=== PATIENT | male | born 1980 | race American Indian/Alaskan Native ===

== ENCOUNTER 2025-05-15 17:56 | Emergency (ER) | payer SELFPAY ==
[2025-05-15 18:48] LABS: BASOPHILS ABSOLUTE AUTO 0.05 K/uL (0.00-0.10); BASOPHILS PERCENT AUTO 0.4 % (0.1-1.3); EOSINOPHILS ABSOLUTE AUTO 0.10 K/uL (0.00-0.40); EOSINOPHILS PERCENT AUTO 0.7 % (0.0-5.4); IMMATURE GRAN ABSOLUTE AUTO 0.07 K/uL (0.00-0.23); IMMATURE GRAN PERCENT AUTO 0.5 % (0.0-0.7); LYMPHOCYTES ABSOLUTE AUTO 1.50 K/uL (0.8-3.3); LYMPHOCYTES PERCENT AUTO 11.2 % (11.4-47.7); MONOCYTES ABSOLUTE AUTO 0.76 K/uL (0.20-0.90); MONOCYTES PERCENT AUTO 5.7 % (3.3-12.6); NEUTROPHILS ABSOLUTE AUTO 10.90 K/uL (1.0-7.6); NEUTROPHILS PERCENT AUTO 81.5 % (40.0-78.1); PLATELET COUNT,PLT 250 K/uL (130-375); RED BLOOD CELL COUNT 2.24 M/uL (4.14-5.76); WHITE BLOOD CELL COUNT,WBC 13.4 K/uL (3.2-11.0)
[2025-05-15 19:11] LABS: A/G RATIO 0.3 (1.2-2.2); ALANINE AMINOTRANSFERASE,ALT 58 U/L (12-78); ASPARTATE AMNIOTRANSFERASE,AST 128 U/L (15-37); BILIRUBIN TOTAL 2.6 mg/dL (0.2-1.0); BLOOD UREA NITROGEN,BUN 25 mg/dL (7-18); CARBON DIOXIDE,CO2 20 mmol/L (21-32); CHLORIDE,CL 101 mmol/L (100-108); CREATININE 2.2 mg/dL (0.8-1.3); EST CRCL DRUG DOSING (CG) 49.43 mL/min; ESTIMATED GFR 37 mL/min (>60); GLUCOSE RANDOM 141 mg/dL (74-106); POTASSIUM,K 4.0 mmol/L (3.6-5.2); PROTEIN TOTAL,TP 7.3 g/dL (6.4-8.2); SODIUM,NA 135 mmol/L (140-148)
[2025-05-15 19:19] LABS: LACTIC ACID 5.6 mmol/L (0.4-2.0)
[2025-05-15] MEDS: Sodium Chloride 0.9% 10 ML Syringe FLUSH ONE (19:33)
[2025-05-15] MEDS: Iopamidol 612 MG/ML 100 ML Bottle IV SCH (20:01)
[2025-05-15] MEDS: metroNIDAZOLE/Normal Saline 500 MG in Premix Bag 1 BAG IV ONE (20:54)
[2025-05-15 23:27] LABS: APPEARANCE,URINE SLIGHTLY CLOUDY (CLEAR); GLUCOSE,URINE NEGATIVE (NEGATIVE); OCCULT BLOOD,URINE MODERATE (NEGATIVE)
[2025-05-15 23:37] LABS: SQUAMOUS EPITHELIAL CELLS,UR MODERATE /HPF; UROTHELIAL CELLS,URINE NOT SEEN /HPF
== END 2025-05-16 04:56 | disposition other institution (70) ==
LOC: JP.ED 17:56
DX: D64.9 Anemia, unspecified (principal); K74.60 Unspecified cirrhosis of liver; F17.200 Nicotine dependence, unspecified, uncomplicated
CPT/HCPCS: 36415; 36430; 71260; 74177; 80053; 80307; 81001; 82140; 82272; 83605; 84484; 85018; 85025; 86140; 86850; 86900; 86901; 86920; 86922; 87040; 93005; 96361; 96365; 96367; 99285; J0692; J1836; J3374; J7030; J7040; J7050; P9016; Q9967; 93010